=== PATIENT | male | born 1945 | race Caucasian/White ===

== ENCOUNTER 2021-12-30 07:01 | Outpatient (CLI) | payer MEDICARE | END 2021-12-30 07:02 | disposition home or self-care (01) | LOC: BICCT 07:01 | PROVIDERS: ATTEND Otolaryngology Plastic Surgery within the Head & Neck | DX: C76.0 Malignant neoplasm of head, face and neck (principal); E04.1 Nontoxic single thyroid nodule; I73.9 Peripheral vascular disease, unspecified | CPT/HCPCS: 70492 ==

== ENCOUNTER 2022-01-06 12:30 | Outpatient (CLI) | payer MEDICARE | END 2022-01-06 12:31 | disposition home or self-care (01) | LOC: PET 12:30 | PROVIDERS: ATTEND Radiology Radiation Oncology | DX: C07 Malignant neoplasm of parotid gland (principal); K11.8 Other diseases of salivary glands | CPT/HCPCS: 78815; A9552 ==

== ENCOUNTER 2022-01-14 09:47 | Outpatient (CLI) | payer MEDICARE ==
[2022-01-14 10:52] LABS: Hemoglobin 14.8 g/dL (13.5-17.5)
[2022-01-14 11:14] LABS: Anion Gap 14 mmol/L (10-20); BUN (Urea Nitrogen) 9 mg/dL (8.4-25.7); Calc. Creatinine Clearance 0 mL/min (70-130); Calcium 9.5 mg/dL (7.8-10.44); Carbon Dioxide 28 mmol/L (23-31); Chloride 102 mmol/L (98-107); Glucose 168 mg/dL (83-110); Potassium 4.8 mmol/L (3.5-5.1); Sodium 139 mmol/L (136-145)
== END 2022-01-14 09:48 | disposition home or self-care (01) ==
LOC: LABBT 09:47
PROVIDERS: ATTEND Otolaryngology Plastic Surgery within the Head & Neck
DX: Z01.818 Encounter for other preprocedural examination (principal); C76.0 Malignant neoplasm of head, face and neck; R22.0 Localized swelling, mass and lump, head; R22.1 Localized swelling, mass and lump, neck; K11.9 Disease of salivary gland, unspecified; C07 Malignant neoplasm of parotid gland; L98.9 Disorder of the skin and subcutaneous tissue, unspecified; Z20.822 Contact with and (suspected) exposure to COVID-19
CPT/HCPCS: 80048; 85014; 85018; 93005; U0003; U0005; 93010

== ENCOUNTER 2022-01-19 08:27 | Day surgery (SDC) | payer MEDICARE ==
[2022-01-18 10:39] VITALS: BMI 25.8
[2022-01-19] MEDS ORDERED: fentaNYL Citrate/PF 100 MCG/2 ML SYRINGE ONE (09:41)
[2022-01-19] MEDS ORDERED: Bacitracin Zinc Ointment 30 gm TUBE ONE (10:25)
[2022-01-19] MEDS ORDERED: Lidocaine 1% w/Epinephrine 1:100K 20 ML VIAL ONE (10:25)
[2022-01-19] MEDS ORDERED: Rocuronium Bromide 10 MG/ML (10ML VIAL) ONE (11:51)
[2022-01-19] MEDS ORDERED: Dexamethasone 20 MG/5 ML VIAL ONE (11:51)
[2022-01-19] MEDS ORDERED: PROPOFOL 200 MG/20 ML VIAL ONE (11:51)
[2022-01-19] MEDS ORDERED: ePHEDrine 50 MG/ML VIAL ONE (11:51)
[2022-01-19] MEDS ORDERED: Ondansetron PF 4 MG/2 ML Vial ONE (11:51)
[2022-01-19] MEDS ORDERED: Lidocaine 1% PF 5 ML VIAL ONE (11:51)
[2022-01-19] MEDS ORDERED: Glycopyrrolate 0.2 MG/ML 5 ML SYRINGE ONE (11:51)
[2022-01-19] MEDS ORDERED: hydrALAZINE 20 MG/ML VIAL ONE (12:50)
== END 2022-01-19 16:05 | disposition home or self-care (01) ==
LOC: SDC 08:27
PROVIDERS: ATTEND Otolaryngology Plastic Surgery within the Head & Neck
PROC: 0CT80ZZ Resection of Right Parotid Gland, Open Approach (ICD-10-PCS; principal; 2022-01-19)
PROC: 00BM0ZZ Excision of Facial Nerve, Open Approach (ICD-10-PCS; 2022-01-19)
PROC: 0HX1XZZ Transfer Face Skin, External Approach (ICD-10-PCS; 2022-01-19)
DX: C07 Malignant neoplasm of parotid gland (principal); C79.2 Secondary malignant neoplasm of skin; E11.9 Type 2 diabetes mellitus without complications; Z79.84 Long term (current) use of oral hypoglycemic drugs; Z79.899 Other long term (current) drug therapy
CPT/HCPCS: 36416; 88307; 88341; 88342; J0360; J1100; J2405; J2704; J3490

== ENCOUNTER 2022-07-21 10:15 | Outpatient (CLI) | payer MEDICARE | END 2022-07-21 10:16 | LOC: PET 10:15 | PROVIDERS: ATTEND Radiology Radiation Oncology | DX: C07 Malignant neoplasm of parotid gland (principal); K11.8 Other diseases of salivary glands | CPT/HCPCS: 78815; A9552 ==

== ENCOUNTER 2022-07-21 12:28 | Outpatient (CLI) | payer MEDICARE | END 2022-07-21 12:29 | disposition home or self-care (01) | LOC: ULT 12:28 | PROVIDERS: ATTEND Radiology Radiation Oncology | DX: E04.1 Nontoxic single thyroid nodule (principal) | CPT/HCPCS: 76536 ==

== ENCOUNTER 2022-08-26 12:16 | Day surgery (SDC) | payer MEDICARE ==
[2022-08-26] MEDS ORDERED: Lidocaine 1% PF 5 ML VIAL ONE (12:56)
[2022-08-26] MEDS ORDERED: Sodium Bicarbonate 2.5 MEQ/5 ML VIAL ONE (12:56)
[2022-08-26 14:23] VITALS: BP 187/77
== END 2022-08-26 14:00 | disposition home or self-care (01) ==
LOC: ULT 12:16
PROVIDERS: ATTEND Radiology Radiation Oncology
PROC: 0G9G3ZX Drainage of Left Thyroid Gland Lobe, Percutaneous Approach, Diagnostic (ICD-10-PCS; principal; 2022-08-26)
DX: E04.1 Nontoxic single thyroid nodule (principal); I10 Essential (primary) hypertension; E78.5 Hyperlipidemia, unspecified; E11.9 Type 2 diabetes mellitus without complications; K21.9 Gastro-esophageal reflux disease without esophagitis; Z85.89 Personal history of malignant neoplasm of other organs and systems
CPT/HCPCS: 10005; 88173; 88305

== ENCOUNTER 2025-03-31 07:56 | Outpatient (CLI) | payer MEDICARE ==
[2025-03-31] MEDS ORDERED: Iopamidol 370 76% 100 ML VIAL ONE (10:07)
== END 2025-03-31 07:57 | disposition home or self-care (01) ==
LOC: CT 07:56
PROVIDERS: ATTEND Internal Medicine Hematology & Oncology
DX: C44.82 Squamous cell carcinoma of overlapping sites of skin (principal); M79.89 Other specified soft tissue disorders; Z90.89 Acquired absence of other organs
CPT/HCPCS: 70491; Q9967

== ENCOUNTER 2025-07-07 12:10 | Outpatient (CLI) | payer MEDICARE | END 2025-07-07 12:11 | disposition home or self-care (01) | LOC: CT 12:10 | PROVIDERS: ATTEND Internal Medicine Hematology & Oncology | DX: C44.82 Squamous cell carcinoma of overlapping sites of skin (principal); R22.1 Localized swelling, mass and lump, neck; J34.89 Other specified disorders of nose and nasal sinuses | CPT/HCPCS: 70491 ==